=== PATIENT | male | born 1990 | race Hispanic/Latino ===

== ENCOUNTER 2018-01-07 08:23 | Emergency (ER) | payer SELFPAY ==
[2018-01-07 08:38] VITALS: BP 128/89
--- NOTE | 2018-01-07 12:19 | Emergency Department Report ---
Blank Doc - Documentation Documentation: Patient is a 27-year-old male who is presents status post a fall yesterday. Patient states he's had surgery in his right lower extremity has a aurelio in place slipped on some water and used currently having some right tib-fib pain. X-ray will be performed patient given an ultram for pain
[2018-01-07] MEDS ORDERED: MOTRIN PO ONE (12:20)
--- NOTE | 2018-01-07 12:46 | XRay Report ---
RIGHT TIBIA/FIBULA: History: Fall, injury AP and lateral views of the right tibia/fibula demonstrate normal mineralization and contours for this patient's age. No destructive changes are noted and the adjacent soft tissues are normal. Previous internal fixation of a bimalleolar fracture is noted. IMPRESSION: No evidence for acute injury.
--- NOTE | 2018-01-07 13:07 | Emergency Department Report ---
ED Lower Extremity HPI - General Chief Complaint: Fall Stated Complaint: FALL/HEADACHE Time Seen by Provider: 01/07/18 12:06 Source: patient Mode of arrival: Ambulatory Limitations: No Limitations - History of Present Illness Initial Comments: This is a 27-year-old male nontoxic, well nourished in appearance, no acute signs of distress presents to the ED with c/o of right tib/fib pain status post fall. Patient stated he was walking at home in the kitchen and tripped and hit his tib-fib against the chair. Patient denies any numbness, tingling, fever, chills, nausea, vomiting, chest pain or shortness of breath. Patient has history of a screw and aurelio placement in the area. Patient states allergies to tramadol. Denies significant PMH. MD Complaint: leg injury -: days(s) (2) Injury: Leg: Left Type of Injury: blunt Place: home Severity: mild Severity scale (0 -10): 8 Improves With: immobilization Worsens With: movement Context: fall, direct blow Associated Symptoms: ambulatory. denies: snap/pop sensation, swelling, numbness , tingling, unable to bear weight, able to partially bear weight - Related Data Previous Rx's Medication Instructions Recorded Last Taken Type Naproxen [Naprosyn TAB] 500 mg PO BID PRN #30 tablet 01/08/15 Unknown Rx Ibuprofen [Motrin] 600 mg PO Q8H PRN #30 tablet 01/07/18 Unknown Rx Allergies Allergy/AdvReac Type Severity Reaction Status Date / Time tramadol Allergy Nausea Verified 01/07/18 08:38 ED Review of Systems ROS: Stated complaint: FALL/HEADACHE Other details as noted in HPI Constitutional: denies: chills, fever Eyes: denies: eye pain, eye discharge, vision change ENT: denies: ear pain, throat pain Respiratory: denies: cough, shortness of breath, wheezing Cardiovascular: denies: chest pain, palpitations Endocrine: no symptoms reported Gastrointestinal: denies: abdominal pain, nausea, diarrhea Genitourinary: denies: urgency, dysuria Musculoskeletal: denies: back pain, joint swelling, arthralgia Skin: denies: rash, lesions Neurological: denies: headache, weakness, paresthesias Psychiatric: denies: anxiety, depression Hematological/Lymphatic: denies: easy bleeding, easy bruising ED Past Medical Hx - Past Medical History Previous Medical History?: Yes Additional medical history: right leg pain - Surgical History Past Surgical History?: Yes Additional Surgical History: right leg surgery with instrumentation - Social History Smoking Status: Light Tobacco Smoker Substance Use Type: Non Opiate Pain - Medications Home Medications: Home Medications Medication Instructions Recorded Confirmed Last Taken Type Naproxen [Naprosyn TAB] 500 mg PO BID PRN #30 tablet 01/08/15 Unknown Rx Ibuprofen [Motrin] 600 mg PO Q8H PRN #30 tablet 01/07/18 Unknown Rx ED Physical Exam - General Limitations: No Limitations General appearance: alert, in no apparent distress - Head Head exam: Present: atraumatic, normocephalic - Eye Eye exam: Present: normal appearance - ENT ENT exam: Present: mucous membranes moist - Neck Neck exam: Present: normal inspection - Respiratory Respiratory exam: Present: normal lung sounds bilaterally. Absent: respiratory distress - Cardiovascular Cardiovascular Exam: Present: regular rate, normal rhythm. Absent: systolic murmur, diastolic murmur, rubs, gallop - GI/Abdominal GI/Abdominal exam: Present: soft, normal bowel sounds - Rectal Rectal exam: Present: deferred - Extremities Exam Extremities exam: Present: normal inspection, full ROM, tenderness, normal capillary refill. Absent: pedal edema, joint swelling, calf tenderness - Expanded Lower Extremity Exam Left Hip exam: Present: normal inspection (right side), full ROM Upper Leg exam: Present: normal inspection (right side), full ROM Knee exam: Present: normal inspection (right side), full ROM, full knee extension. Absent: tenderness, swelling, abrasion, laceration, ecchymosis, deformity, crepidus, dislocation, erythema, effusion, pain w/ pronation/ supination, posterior draw sign, pain/laxity with valgus, pain/laxity with varus Lower Leg exam: Present: normal inspection (right side), full ROM. Absent: tenderness, swelling, abrasion, laceration, ecchymosis, deformity, crepidus, dislocation, erythema, palpable cord, Arelis's sign Ankle exam: Present: normal inspection (right side), full ROM Foot/Toe exam: Present: normal inspection (right side), full ROM Neuro vascular tendon exam: Present: no vascular compromise (right side). Absent: pulse deficit, abnormal cap refill, motor deficit, sensory deficit, tendon deficit, extremity cold to touch, pallor, abnormal 2-point discrimination , decreased fine/light touch, foot drop, peroneal nerve deficit, significant pain with passive ROM of distal joint Gait: Positive: observed and normal (right side) - Back Exam Back exam: Present: normal inspection, full ROM. Absent: tenderness, CVA tenderness (R), CVA tenderness (L), muscle spasm, paraspinal tenderness, vertebral tenderness, rash noted - Neurological Exam Neurological exam: Present: alert, oriented X3, CN II-XII intact, normal gait, reflexes normal - Psychiatric Psychiatric exam: Present: normal affect, normal mood - Skin Skin exam: Present: warm, dry, intact, normal color. Absent: rash - Other Other exam information: Exam is on the right side of the lower extremity. ED Course Vital Signs 01/07/18 08:35 Temperature 97.8 F Pulse Rate 90 Respiratory 18 Rate Blood Pressure 128/89 O2 Sat by Pulse 99 Oximetry - Reevaluation(s) Reevaluation #1: 01/07/18 13:05 Patient is speaking in full sentences with no signs of distress noted. - Consultations Consultation #1: 01/07/18 13:06 Patient has been consulted with Dr. Parrish about patient history, physical exam , and labs and examined and screened patient and agrees to ED plan of care and discharge plan of care. ED Lower Extremity MDM - Medical Decision Making This is a 27-year-old male that presents with right leg strain. Patient is stable and was examined by me and Dr. Parrish. Patient is notified of xray results with no questions noted by the patient. Patient received pain medications and stated symptoms are improving and subsiding. Patient was instructed to RICE therapy. Patient was instructed to Follow-up with a orthopedic doctor in 3-5 days or if symptoms worsen and continue return to emergency room as soon as possible. At time of discharge, the patient does not seem toxic or ill in appearance. No acute signs of distress noted. Patient agrees to discharge treatment plan of care. No further questions noted by the patient. Critical care attestation.: If time is entered above; I have spent that time in minutes in the direct care of this critically ill patient, excluding procedure time. ED Disposition Clinical Impression: Leg strain Disposition: DC- TO HOME OR SELFCARE Is pt being admited?: No Does the pt Need Aspirin: No Condition: Stable Instructions: RICE Therapy (ED), Ibuprofen (By mouth) Additional Instructions: Follow-up with a orthopedic doctor in 3-5 days or if symptoms worsen and continue return to emergency room as soon as possible. Prescriptions: Ibuprofen [Motrin] 600 mg PO Q8H PRN #30 tablet PRN Reason: Pain Referrals: PRIMARY CARE, [Primary Care Provider] - 3-5 Days LORETA CABALLERO MD [Staff Physician] - 3-5 Days [facility] [Outside] - 3-5 Days [facility] [Outside] - 3-5 Days Forms: Work/School Release Form(ED)
== END 2018-01-07 13:26 | disposition home or self-care (01) ==
LOC: ED 08:23
DX: S86.811A Strain of other muscle(s) and tendon(s) at lower leg level, right leg, initial encounter (principal); F17.200 Nicotine dependence, unspecified, uncomplicated; Z88.8 Allergy status to other drugs, medicaments and biological substances; W01.190A Fall on same level from slipping, tripping and stumbling with subsequent striking against furniture, initial encounter; Y93.89 Activity, other specified; Y92.89 Other specified places as the place of occurrence of the external cause; Y99.8 Other external cause status
CPT/HCPCS: 99283